=== PATIENT | female | born 1980 | race Caucasian/White ===

== ENCOUNTER 2017-02-08 18:11 | Emergency (ER) | payer OTHER ==
[~2017-02-08] VITALS: Ht 167.6 cm; Wt 61.2 kg
[2017-02-08 19:05] VITALS: BP 141/95
[2017-02-08] MEDS ORDERED: KETOROLAC TROMETH 60MG/2ML VIAL IM ONE (19:45)
[2017-02-08] MEDS ORDERED: PROMETHAZINE HCL 25 MG/ML 1ML IM ONE (19:45)
[2017-02-08] MEDS ORDERED: diphenhdrAMINE HCL 25 MG CAP PO ONE (19:45)
== END 2017-02-08 21:09 | disposition home or self-care (01) ==
LOC: ER 18:15
DX: R51 Headache (principal); R20.0 Anesthesia of skin
CPT/HCPCS: 70450; 81025; 96372; 99284; J1885; J2550